=== PATIENT | male | born 1950 | race Caucasian/White ===

== ENCOUNTER 2017-09-02 13:47 | Emergency (ER) | payer MEDICARE ==
[~2017-09-02] VITALS: Ht 170.2 cm; Wt 75.3 kg
[2017-09-02 13:47] VITALS: BP_SYST 108
--- NOTE | 2017-09-02 13:47 | NUR ---
PATIENT BROUGHT IN BLS C/C RIGHT ARM "TINGLING" WHILE WATCHING T.V AT HOME, EQUESL MIDDLEWARE ARCHITECT, NO NUMBNESS NOTED, PLACED IN ROOM 3 UPDATED V/S STABLE.
[2017-09-02] MEDS ORDERED: DABI75CA4 PO (14:04)
[2017-09-02] MEDS ORDERED: ALBU2.5V7 INH (14:04)
[2017-09-02] MEDS ORDERED: GLIP-195 PO (14:04)
[2017-09-02] MEDS ORDERED: HALO2TAB PO (14:04)
[2017-09-02] MEDS ORDERED: POLY1GRA PO (14:04)
[2017-09-02] MEDS ORDERED: ALLO100T PO (14:04)
[2017-09-02] MEDS ORDERED: HYDR-1189 PO (14:04)
[2017-09-02] MEDS ORDERED: ISOS20TA8 PO (14:04)
[2017-09-02] MEDS ORDERED: HYDR-4039 PO (14:04)
[2017-09-02] MEDS ORDERED: SPIRIVA INH (14:04)
[2017-09-02] MEDS ORDERED: DOCU250C PO (14:04)
[2017-09-02] MEDS ORDERED: CALC0.258 PO (14:04)
[2017-09-02] MEDS ORDERED: FURO-149 PO (14:04)
[2017-09-02] MEDS ORDERED: OMEP20CA10 PO (14:04)
[2017-09-02] MEDS ORDERED: TRAZ-123 PO (14:04)
[2017-09-02] MEDS ORDERED: HYT1 GT (14:04)
--- NOTE | 2017-09-02 14:30 | NUR ---
MD Mendoza at bedside.
[2017-09-02 14:47] LABS: BASOPHILS % (AUTO) 0.2 % (0.0-2.0); EOSINOPHILS # (AUTO) 0.1 K/uL (0.0-0.4); EOSINOPHILS % (AUTO) 1.2 % (0.0-4.0); HEMATOCRIT 31.3 % (36-54); HEMOGLOBIN 10.4 g/dL (14.0-18.0); LYMPHOCYTES # (AUTO) 0.7 K/uL (1.0-5.5); MEAN CORPUSCULAR HEMOGLOBIN 32 pg (27-31); MEAN CORPUSCULAR HGB CONC 33 % (32-36); MEAN CORPUSCULAR VOLUME 96 fL (79.0-98.0); MONOCYTES # (AUTO) 0.4 K/uL (0.0-1.0); NEUTROPHILS # (AUTO) 4.9 K/uL (1.8-7.7); NEUTROPHILS % (AUTO) 81.6 % (40.0-70.0); PLATELET COUNT (AUTO) 228 K/uL (130-430); RED BLOOD CELL COUNT(AUTO) 3.24 MIL/uL (4.2-6.2); RED CELL DISTRIBUTION WIDTH 12.9 % (9.0-15.0); WHITE BLOOD COUNT (AUTO) 6.1 K/uL (4.8-10.8)
[2017-09-02 15:08] LABS: INR 1.1 (0.80-1.20); PROTHROMBIN TIME 11.3 SECS (9.5-12.5)
[2017-09-02 15:09] LABS: CALCIUM 8.8 mg/dL (8.4-11.0); CREATININE 2.69 mg/dL (0.55-1.30); POTASSIUM 3.6 mmol/L (3.5-5.1)
[2017-09-02 15:19] LABS: TOTAL BILIRUBIN 0.3 mg/dL (0.0-1.0)
[2017-09-02 15:20] LABS: ALBUMIN 3.6 g/dL (3.4-4.8)
[2017-09-02 15:40] LABS: BILIRUBIN,URINE NEGATIVE (NEGATIVE); BLOOD, URINE NEGATIVE (NEGATIVE); CLARITY/URINE CLEAR (CLEAR); COLOR,URINE YELLOW (YELLOW); GLUCOSE,URINE 3+ (NEGATIVE); KETONES,URINE NEGATIVE (NEGATIVE); LEUKOCYTE ESTERASE ,URINE NEGATIVE (NEGATIVE); NITRITE, URINE NEGATIVE (NEGATIVE); PROTEIN URINE 1+ (NEGATIVE); UROBILINOGEN,URINE 0.2 (0.2-1.0)
[2017-09-02 15:45] LABS: BACTERIA,URINE FEW /HPF (None Seen); MUCUS,URINE None Seen /LPF (None Seen); RBC,URINE 0-3 /HPF (0-3); WBC,URINE 0-3 /HPF (0-3)
[2017-09-02] MEDS ORDERED: KCL 40 mEq in 100 mL (PREMIX) 100 ML IV ONE (15:45)
[2017-09-02] MEDS: NS 500 ML IV ONE (16:03)
[2017-09-02] MEDS: LORazepam 2 MG/ML VIAL (FOR ER USE) IVP ONE (16:05)
[2017-09-02] MEDS: POTASSIUM CHLORIDE 20 MEQ TAB.PRT.SR PO ONE ×2 (16:06→16:07)
[2017-09-02] MEDS: KCL 20 mEq in 100 mL (PREMIX) 200 ML IV ONE (16:37)
[2017-09-02] MEDS: INSULIN NPH 100 UNITS/ML 10 ML VIAL SUBCUT ONE (16:42)
--- NOTE | 2017-09-02 16:46 | NUR ---
Urinary output of 400mls obtained, clear yellow urine noted.
--- NOTE | 2017-09-02 17:15 | NUR ---
Patient c/o pain at IV site, rate reduced to 25mls/hr. MD Mendoza made aware of patient condition.
--- NOTE | 2017-09-02 17:44 | NUR ---
Patient has been accepted at [facility], accepting Dr. Elizalde. Report call [phone].
--- NOTE | 2017-09-02 17:52 | NUR ---
Telephone report given to Jolynn barber RN, last glucose obatined prior to transfer is [phone]. Pt updated V/S condition stable.
[2017-09-02 18:01] VITALS: BP_SYST 164
--- NOTE | 2017-09-02 18:01 | NUR ---
Patient to be transferred to [facility] ER. Is being transferred due to higher level of care. Receiving facility has accepting physician and available space. ER physician has signed transfer form. Patient or responsible green party has agreed to transfer and signed form. Patient belongings inventoried and will be sent with patient. Copy of nursing notes, lab reports, EKG, Physicians Orders and X-rays to be sent with patient. Report called to at receiving facility. Receiving physician is . ambulance service has been called for transfer. ETA is .
== END 2017-09-02 18:01 | disposition short-term general hospital (02) ==
LOC: SED 13:47
DX: E11.65 Type 2 diabetes mellitus with hyperglycemia (principal); E87.8 Other disorders of electrolyte and fluid balance, not elsewhere classified; I10 Essential (primary) hypertension; E78.00 Pure hypercholesterolemia, unspecified; Z79.899 Other long term (current) drug therapy
CPT/HCPCS: 36415; 71045; 74018; 80053; 81000; 83690; 83880; 84484; 85025; 85610; 93005; 96361; 96365; 96372; 96375; 99285; J2060; J3480; J7040; J1815

== ENCOUNTER 2017-09-05 03:49 | Emergency (ER) | payer MEDICARE ==
[~2017-09-05] VITALS: Ht 170.2 cm; Wt 75.3 kg
[2017-09-05 03:49] VITALS: BP_SYST 172
[~2017-09-05 03:49] MED LIST: ALBU2.5V7 INH; ALLO100T PO; CALC0.258 PO; DABI75CA4 PO; DOCU250C PO; FURO-149 PO; GLIP-195 PO; HALO2TAB PO; HYDR-1189 PO; HYDR-4039 PO; HYT1 GT; ISOS20TA8 PO; OMEP20CA10 PO; POLY1GRA PO; SPIRIVA INH; TRAZ-123 PO
[2017-09-05] MEDS ORDERED: CHOL200026 PO (03:59)
[2017-09-05] MEDS ORDERED: METO-442 PO (04:00)
[2017-09-05] MEDS ORDERED: NACL 0.9% 1,000 ML IV ONE (04:00)
[2017-09-05] MEDS ORDERED: LIP20 PO (04:03)
[2017-09-05] MEDS ORDERED: TERA10CA47 PO (04:04)
[2017-09-05] MEDS ORDERED: HAL1 PO (04:05)
[2017-09-05] MEDS ORDERED: MOME13HF INH (04:09)
[2017-09-05 04:19] LABS: BASOPHILS # (AUTO) 0.1 K/uL (0.0-0.2); BASOPHILS % (AUTO) 1.8 % (0.0-2.0); EOSINOPHILS # (AUTO) 0.1 K/uL (0.0-0.4); EOSINOPHILS % (AUTO) 1.4 % (0.0-4.0); HEMATOCRIT 33.2 % (36-54); LYMPHOCYTES # (AUTO) 1.1 K/uL (1.0-5.5); LYMPHOCYTES % (AUTO) 15.7 % (20.5-51.5); MEAN CORPUSCULAR HEMOGLOBIN 32 pg (27-31); MEAN CORPUSCULAR HGB CONC 33 % (32-36); MEAN CORPUSCULAR VOLUME 97 fL (79.0-98.0); MONOCYTES # (AUTO) 0.6 K/uL (0.0-1.0); MONOCYTES % (AUTO) 8.1 % (1.7-9.3); PLATELET COUNT (AUTO) 236 K/uL (130-430); RED BLOOD CELL COUNT(AUTO) 3.44 MIL/uL (4.2-6.2); WHITE BLOOD COUNT (AUTO) 6.9 K/uL (4.8-10.8)
[2017-09-05 04:24] LABS: ANION GAP 8 (5-15); CALCIUM 8.9 mg/dL (8.4-11.0); CHLORIDE 91 mmol/L (98-107); CREATININE 2.67 mg/dL (0.55-1.30); GLUCOSE 302 mg/dL (70-99); POTASSIUM 3.8 mmol/L (3.5-5.1); SODIUM SERUM 128 mmol/L (136-145); UREA NITROGEN, BLOOD 57 mg/dL (8-21)
[2017-09-05 04:25] LABS: GFR AFRICAN AMERICAN 31 mL/min (>90)
[2017-09-05 04:25] LABS: BILIRUBIN,URINE NEGATIVE (NEGATIVE); CLARITY/URINE CLEAR (CLEAR); COLOR,URINE YELLOW (YELLOW); GLUCOSE,URINE 2+ (NEGATIVE); KETONES,URINE NEGATIVE (NEGATIVE); LEUKOCYTE ESTERASE ,URINE NEGATIVE (NEGATIVE); NITRITE, URINE NEGATIVE (NEGATIVE); PROTEIN URINE 2+ (NEGATIVE); UROBILINOGEN,URINE 0.2 (0.2-1.0)
[2017-09-05 04:30] LABS: BLOOD, URINE TRACE (NEGATIVE)
[2017-09-05] MEDS ORDERED: MORPHINE 2 MG/ML INJ. SYRINGE IVP ONE (04:30)
[2017-09-05 04:33] LABS: ALANINE AMINOTRANSFERASE 27 U/L (12-78); ALBUMIN 3.6 g/dL (3.4-4.8); ASPARTATE AMINOTRANSFERASE 19 U/L (10-37); LIPASE 169 U/L (73-393); TOTAL BILIRUBIN 0.4 mg/dL (0.0-1.0)
[2017-09-05 04:34] LABS: BACTERIA,URINE FEW /HPF (None Seen); RBC,URINE 0-3 /HPF (0-3); WBC,URINE 0-3 /HPF (0-3)
[2017-09-05] MEDS ORDERED: INSULIN REGULAR, HUMAN 10 UNITS/0.1 ML INJ SUBCUT ONE (04:45)
[2017-09-05] MEDS ORDERED: ASPIRIN 81 MG TAB.CHEW PO ONE (05:30)
[2017-09-05] MEDS ORDERED: ALBUTEROL SULFATE 0.083% 2.5 MG/3 ML VIAL.NEB INH ONE (06:00)
[2017-09-05 07:15] VITALS: BP_SYST 157
== END 2017-09-05 07:15 | disposition short-term general hospital (02) ==
LOC: SED 03:49
DX: R07.89 Other chest pain (principal); E86.0 Dehydration; N17.9 Acute kidney failure, unspecified; E11.9 Type 2 diabetes mellitus without complications; I10 Essential (primary) hypertension; E78.00 Pure hypercholesterolemia, unspecified; I25.2 Old myocardial infarction; Z95.9 Presence of cardiac and vascular implant and graft, unspecified; Z79.899 Other long term (current) drug therapy
CPT/HCPCS: 36415; 71045; 80053; 81000; 82962; 83605; 83690; 83880; 84484; 85025; 87040; 93005; 94640; 96361; 96365; 96372; 96375; 99285; J1815; J1956; J2270; J7030

== ENCOUNTER 2018-01-13 20:37 | Emergency (ER) | payer MEDICARE ==
[~2018-01-13] VITALS: Ht 167.6 cm; Wt 75.7 kg
[~2018-01-13 20:37] MED LIST changes: +CHOL200026 PO; +HAL1 PO; -HALO2TAB PO; -HYT1 GT; +LIP20 PO; +METO-442 PO; +MOME13HF INH; +TERA10CA47 PO
[2018-01-13 20:38] VITALS: BP_SYST 112
[2018-01-13] MEDS ORDERED: SPIRIVA INH (20:55)
[2018-01-13] MEDS ORDERED: DABI75CA4 PO (20:55)
[2018-01-13] MEDS ORDERED: SER25 PO (20:55)
[2018-01-13] MEDS ORDERED: METO50TA7 PO (20:55)
[2018-01-13] MEDS ORDERED: CEL20 PO (20:55)
[2018-01-13] MEDS ORDERED: LEVE500T53 PO (20:55)
[2018-01-13] MEDS ORDERED: POTA-118 PO (20:55)
[2018-01-13] MEDS ORDERED: GLIP-172 PO (20:55)
[2018-01-13] MEDS ORDERED: NACL 0.9% 1,000 ML IV ONE (21:00)
[2018-01-13] MEDS ORDERED: ASPIRIN 81 MG TAB.CHEW PO ONE (21:00)
[2018-01-13 21:36] LABS: BASOPHILS % (AUTO) 0.7 % (0.0-2.0); EOSINOPHILS # (AUTO) 0.3 K/uL (0.0-0.4); EOSINOPHILS % (AUTO) 7.1 % (0.0-4.0); HEMATOCRIT 27.9 % (36-54); HEMOGLOBIN 9.2 g/dL (14.0-18.0); LYMPHOCYTES # (AUTO) 0.7 K/uL (1.0-5.5); LYMPHOCYTES % (AUTO) 18.1 % (20.5-51.5); MEAN CORPUSCULAR HEMOGLOBIN 32 pg (27-31); MEAN CORPUSCULAR HGB CONC 33 % (32-36); MEAN CORPUSCULAR VOLUME 98 fL (79.0-98.0); MONOCYTES # (AUTO) 0.5 K/uL (0.0-1.0); MONOCYTES % (AUTO) 12.5 % (1.7-9.3); NEUTROPHILS # (AUTO) 2.1 K/uL (1.8-7.7); NEUTROPHILS % (AUTO) 61.6 % (40.0-70.0); PLATELET COUNT (AUTO) 214 K/uL (130-430); RED BLOOD CELL COUNT(AUTO) 2.85 MIL/uL (4.2-6.2); RED CELL DISTRIBUTION WIDTH 14.4 % (9.0-15.0); WHITE BLOOD COUNT (AUTO) 3.6 K/uL (4.8-10.8)
[2018-01-13 21:51] LABS: ANION GAP 6 (5-15); CALCIUM 8.1 mg/dL (8.4-11.0); CHLORIDE 102 mmol/L (98-107); CREATININE 2.94 mg/dL (0.55-1.30); GLUCOSE 141 mg/dL (70-99); POTASSIUM 3.9 mmol/L (3.5-5.1); SODIUM SERUM 142 mmol/L (136-145); UREA NITROGEN, BLOOD 65 mg/dL (8-21)
[2018-01-13 21:52] LABS: GFR AFRICAN AMERICAN 28 mL/min (>90)
[2018-01-13 21:59] LABS: ALANINE AMINOTRANSFERASE 18 U/L (12-78); ALBUMIN 3.5 g/dL (3.4-4.8); ASPARTATE AMINOTRANSFERASE 16 U/L (10-37); TOTAL BILIRUBIN 0.3 mg/dL (0.0-1.0)
[2018-01-13] MEDS ORDERED: PIPERACILLIN/TAZO 3.375 GM in NS 50 ML IV ONE (22:15)
[2018-01-13] MEDS ORDERED: PIPERACILLIN/TAZOBACTAM 3.375 GM/VIAL (ZOSYN) IV ONE (22:48)
[2018-01-14 00:33] VITALS: BP_SYST 119
== END 2018-01-14 00:36 | disposition short-term general hospital (02) ==
LOC: SED 20:37
DX: D64.9 Anemia, unspecified (principal); J18.9 Pneumonia, unspecified organism; E11.9 Type 2 diabetes mellitus without complications; I10 Essential (primary) hypertension; F03.90 Unspecified dementia, unspecified severity, without behavioral disturbance, psychotic disturbance, mood disturbance, and anxiety; E78.00 Pure hypercholesterolemia, unspecified; I25.2 Old myocardial infarction; G45.9 Transient cerebral ischemic attack, unspecified; Z79.899 Other long term (current) drug therapy; Z95.5 Presence of coronary angioplasty implant and graft
CPT/HCPCS: 36415; 71045; 80053; 83605; 84484; 85025; 87040; 93005; 96365; 99285; J2543; J7030